=== PATIENT | male | born 1950 | race American Indian/Alaskan Native ===

== ENCOUNTER 2021-03-04 09:53 | Emergency (ER) | payer OTHER, MEDICARE ==
[2021-03-04 09:57] VITALS: BP 162/86
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
== END 2021-03-04 11:13 | disposition home or self-care (01) ==
LOC: ED 09:53
DX: S46.812A Strain of other muscles, fascia and tendons at shoulder and upper arm level, left arm, initial encounter (principal); M54.2 Cervicalgia; V87.7XXA Person injured in collision between other specified motor vehicles (traffic), initial encounter; Y93.89 Activity, other specified; Y92.89 Other specified places as the place of occurrence of the external cause; Y99.8 Other external cause status
CPT/HCPCS: 72040; 99283